=== PATIENT | female | born 1965 | race Caucasian/White ===

== ENCOUNTER 2019-08-05 14:17 | Emergency (ER) | payer BC, OTHER ==
--- NOTE | 2019-08-05 15:10 | EDM.PDOC ---
ED HPI GENERAL MEDICAL PROBLEM - General Chief Complaint: Chest Pain Stated Complaint: CHEST PAIN/BACK PAIN Time Seen by Provider: 08/05/19 15:08 - History of Present Illness INITIAL COMMENTS - FREE TEXT/NARRATIVE: 53-year-old female presents emergency room after a bout of chest pain.. the patient has not been feeling well the last several days she had some right hand numbness and tingling a couple of days ago and this migrated to her left hand yesterday but now has resolved. The patient has a history of type 2 diabetes however she's been off all her diabetes medications for about 9 months because the 2 health care providers she was seeing both left town. She is to take a metformin and glipizide. The patient has lost about 14 pounds but it is uncertain over the timeframe she lost this she's not been intentionally trying to lose weight. She does have a history of anxiety and does not know if this is been contributing to her recent symptoms. Chest pain she had about 11:30 12:00 today last 15-20 minutes with substernal did not seem to radiate anywhere. The pain is described as a sharp pressure. Treatments MAC DEVELOPER: Reports: Other (see below) Other Treatments MAC DEVELOPER: motrin Middle Chest Pain Score (Numeric/FACES): 5 - Related Data Allergies Allergy/AdvReac Type Severity Reaction Status Date / Time mushroom Allergy Hives Verified 09/24/18 08:51 Home Meds: Home Meds metFORMIN HCl [Metformin HCl] 500 mg PO Q12H #60 tablet 08/05/19 [Rx] Past Medical History HEENT History: Reports: Sinusitis Cardiovascular History: Reports: High Cholesterol, Hypertension Respiratory History: Reports: Asthma Gastrointestinal History: Reports: None Genitourinary History: Reports: Other (See Below) Other Genitourinary History: dysmenorrhea Musculoskeletal History: Reports: Other (See Below) Other Musculoskeletal History: ac joint arhtritis, right shoulder adhesive capsulitis, labral tear, right rotator cuff tear Neurological History: Reports: None Psychiatric History: Reports: Anxiety, Depression Endocrine/Metabolic History: Reports: Diabetes, Gestational, Diabetes, Type II Hematologic History: Reports: None Immunologic History: Reports: None Oncologic (Cancer) History: Reports: None Dermatologic History: Reports: None - Past Surgical History Head Surgeries/Procedures: Reports: None HEENT Surgical History: Reports: None Cardiovascular Surgical History: Reports: None Respiratory Surgical History: Reports: None Female Surgical History: Reports: D&C Endocrine Surgical History: Reports: None Neurological Surgical History: Reports: None Musculoskeletal Surgical History: Reports: None Oncologic Surgical History: Reports: None Dermatological Surgical History: Reports: None Social & Family History - Tobacco Use Smoking Status *Q: Never Smoker - Caffeine Use Caffeine Use: Reports: Soda, Tea - Recreational Drug Use Recreational Drug Use: No ED ROS GENERAL - Review of Systems Review Of Systems: See Below Constitutional: Reports: No Symptoms HEENT: Reports: No Symptoms Respiratory: Reports: No Symptoms Cardiovascular: Reports: Chest Pain. Denies: Blood Pressure Problem, Claudication GI/Abdominal: Reports: No Symptoms : Reports: No Symptoms Musculoskeletal: Reports: No Symptoms Skin: Reports: No Symptoms Neurological: Reports: Numbness, Tingling Psychiatric: Reports: Anxiety Hematologic/Lymphatic: Reports: No Symptoms Immunologic: Reports: No Symptoms ED EXAM, GENERAL - Physical Exam Exam: See Below Exam Limited By: No Limitations General Appearance: Alert, No Apparent Distress Head: Atraumatic, Normocephalic Neck: Normal Inspection, Supple, Non-Tender, Full Range of Motion. No: Lymphadenopathy (L), Lymphadenopathy (R) Respiratory/Chest: No Respiratory Distress, Lungs Clear, Normal Breath Sounds Cardiovascular: Normal Peripheral Pulses, Regular Rate, Rhythm, No Edema GI/Abdominal: Normal Bowel Sounds, Soft, Non-Tender, Other (She has a ventral hernia does not seem to bother her somewhat obese a few scratches on her abdomen she's thought were due to her cats none appears to be obviously infected ) Back Exam: Normal Inspection. No: CVA Tenderness (L), CVA Tenderness (R), Paraspinal Tenderness, Vertebral Tenderness Neurological: Alert, Oriented, Normal Cognition, No Motor/Sensory Deficits Psychiatric: Anxious (Mild) Course - Vital Signs Last Recorded V/S: Last Vital Signs Temp 35.9 C 08/05/19 14:33 Pulse 85 08/05/19 14:33 Resp 20 08/05/19 14:33 BP 139/51 L 08/05/19 14:33 Pulse Ox 96 08/05/19 14:33 - Orders/Labs/Meds Orders: Active Orders 24 hr Category Date Time Status EKG Documentation Completion [RC] ASDIRECTED Care 08/05/19 14:38 Active EKG 12 Lead [EK] Stat Ther 08/05/19 14:37 Ordered Labs: Laboratory Tests 08/05/19 08/05/19 08/05/19 Range/Units 15:35 15:35 15:55 WBC 6.74 (3.98-10.04) K/mm3 RBC 4.94 (3.98-5.22) M/mm3 Hgb 14.9 (11.2-15.7) gm/dl Hct 43.0 (34.1-44.9) % MCV 87.0 (79.4-94.8) fl MCH 30.2 (25.6-32.2) pg MCHC 34.7 (32.2-35.5) g/dl RDW Std Deviation 42.2 (36.4-46.3) fL Plt Count 252 (182-369) K/mm3 MPV 10.1 (9.4-12.3) fl Neutrophils % (Manual) 62 H (40-60) % Band Neutrophils % 0 (0-10) % Lymphocytes % (Manual) 29 (20-40) % Atypical Lymphs % 0 % Monocytes % (Manual) 8 (2-10) % Eosinophils % (Manual) 1 (0.7-5.8) % Basophils % (Manual) 0 L (0.1-1.2) Platelet Estimate Adequate RBC Morph Comment Normal Sodium 133 L (136-145) mEq/L Potassium 4.2 (3.5-5.1) mEq/L Chloride 98 (98-107) mEq/L Carbon Dioxide 26 (21-32) mEq/L Anion Gap 13.2 (5-15) BUN 15 (7-18) mg/dL Creatinine 0.8 (0.55-1.02) mg/dL Est Cr Clr Drug Dosing 74.02 mL/min Estimated GFR (MDRD) > 60 (>60) mL/min BUN/Creatinine Ratio 18.8 H (14-18) Glucose 264 H (74-106) mg/dL Calcium 8.8 (8.5-10.1) mg/dL Total Bilirubin 0.5 (0.2-1.0) mg/dL AST 19 (15-37) U/L ALT 36 (14-59) U/L Alkaline Phosphatase 83 (46-116) U/L Troponin I < 0.017 (0.00-0.056) ng/mL Total Protein 7.2 (6.4-8.2) g/dl Albumin 3.5 (3.4-5.0) g/dl Globulin 3.7 gm/dL Albumin/Globulin Ratio 1.0 (1-2) Urine Color Yellow (Yellow) Urine Appearance Clear (Clear) Urine pH 5.5 (5.0-8.0) Ur Specific Furman 1.025 (1.005-1.030) Urine Protein Negative (Negative) Urine Glucose (UA) 2+ H (Negative) Urine Ketones 1+ H (Negative) Urine Occult Blood Negative (Negative) Urine Nitrite Negative (Negative) Urine Bilirubin Negative (Negative) Urine Urobilinogen 0.2 (0.2-1.0) Ur Leukocyte Esterase Negative (Negative) Urine RBC 0-5 (0-5) /hpf Urine WBC 0-5 (0-5) /hpf Ur Squamous Epith Cells 0-5 (0-5) /hpf Urine Bacteria Not seen (FEW) /hpf Urine Mucus Not seen (FEW) /hpf Meds: Medications Discontinued Medications Generic Name Dose Route Start Last Admin Trade Name Neeru PRN Reason Stop Dose Admin Aspirin 324 mg 08/05/19 15:25 08/05/19 15:30 Aspirin PO 08/05/19 15:26 324 mg ONETIME ONE Administration Lorazepam 0.5 mg 08/05/19 15:26 08/05/19 15:30 Ativan PO 08/05/19 15:27 0.5 mg ONETIME ONE Administration - Re-Assessments/Exams Free Text/Narrative Re-Assessment/Exam: 08/05/19 17:37 Labs done patient's blood sugars are pretty elevated the 250s. She is spilling glucose in her urine ketones are slightly elevated on UA. Troponin is normal. At this point I recommended the patient get a stress test done she needs to reestablish with a local doctor she will call the Hospital clinic and try and get in to be seen on Friday with a can discuss getting this done. I will start her back on metformin 500 mg twice daily and have her take a baby aspirin daily. I believe a lot of her symptoms are stress related, anxiety. However she is at high risk for coronary artery disease with her diabetes poorly controlled. Did discuss anti-anxiety medication but the patient would like to hold off on this Departure - Departure Time of Disposition: 17:39 Disposition: Home, Self-Care Clinical Impression: Chest pain, Poorly controlled type 2 diabetes mellitus, Anxiety reaction Prescriptions: metFORMIN HCl [Metformin HCl] 500 mg PO Q12H #60 tablet Referrals: PCP,None [Primary Care Provider] - Forms: ED Department Discharge Additional Instructions: Return to the emergency room with any questions problems worsening symptoms. Start the metformin as directed. Take a baby aspirin enteric-coated 81 mg dose 1 daily. Follow-up in the Hospital clinic on Friday for recheck and to reestablish with a local provider. [phone] Discuss getting a heart stress test done. - My Orders Last 24 Hours: My Active Orders 08/05/19 14:37 EKG 12 Lead [EK] Stat 08/05/19 14:38 EKG Documentation Completion [RC] ASDIRECTED - Assessment/Plan Last 24 Hours: My Active Orders 08/05/19 14:37 EKG 12 Lead [EK] Stat 08/05/19 14:38 EKG Documentation Completion [RC] ASDIRECTED
[2019-08-05] MEDS ORDERED: Aspirin 81 MG Tab.Chew PO ONE (15:25)
[2019-08-05] MEDS ORDERED: LORazepam 0.5 MG Tab PO ONE (15:26)
--- NOTE | 2019-08-05 17:20 | CR ---
Chest: Portable view of the chest was obtained. Comparison: No prior chest x-ray. Heart size is slightly enlarged but accentuated from portable technique. Upper mediastinum is normal. Lungs are clear with no acute parenchymal change. Bony structures are grossly intact. Impression: 1. Nothing acute is appreciated on portable chest x-ray. Diagnostic code #2
== END 2019-08-05 18:00 | disposition home or self-care (01) ==
LOC: JD.ED 14:17
DX: F41.1 Generalized anxiety disorder (principal); E11.65 Type 2 diabetes mellitus with hyperglycemia; R07.9 Chest pain, unspecified; I10 Essential (primary) hypertension; J45.909 Unspecified asthma, uncomplicated; Z79.84 Long term (current) use of oral hypoglycemic drugs; Z91.018 Allergy to other foods
CPT/HCPCS: 36415; 71045; 80053; 81001; 84484; 85007; 85027; 93005; 99285; A9270; 93010

== ENCOUNTER 2019-11-09 08:25 | Emergency (ER) | payer BC ==
[2019-11-09] MEDS ORDERED: Aspirin 81 MG Tab.Chew PO ONE (08:29)
[2019-11-09] MEDS ORDERED: Sodium Chloride 0.9% 1,000 ML IV SCH (08:30)
[2019-11-09] MEDS ORDERED: Nitroglycerin/D5W 25 MG/250 ML BOTTLE IV SCH (08:30)
--- NOTE | 2019-11-09 08:37 | EDM.PDOC ---
ED HPI GENERAL MEDICAL PROBLEM - General Chief Complaint: Cardiovascular Problem Stated Complaint: BROUGHT OVER FROM STRESS TEST Time Seen by Provider: 11/09/19 08:32 Source of Information: Reports: Patient, Other (PA performing the ECG stress test.) History Limitations: Reports: No Limitations - History of Present Illness INITIAL COMMENTS - FREE TEXT/NARRATIVE: Patient has an abnormal ECG with T-wave inversion in II, III, and F aVF concerning for inferior wall ischemia. She underwent normal ECG stress testing this morning but only managed about 3 minutes on the Jake protocol first step. Because of central chest pain discomfort it was discontinued. She did receive a dose of Lexiscan and the pain got worse. Thus was brought to the ED for evaluation and monitoring . Still has central chest heaviness at the time of examination. She is a nonsmoker but she is a diabetic and overweight with hypertension. ECG shows sinus rhythm at 94/m. There is a nonspecific intraventricular conduction delay. Nonspecific diffuse repolarization abnormality. Consider left atrial hypertrophy pattern signs of definitive ischemia. Patient denies any sensation of needing to burp or belch. Patient reports she's been having similar type pains for many months and this is the reason that she's having ECG stress test performed. Onset: Today Onset Date: 11/09/19 Onset Time: 08:10 Duration: Minutes: Location: Reports: Chest (Antral chest pressure heaviness not radiating to her back neck or arms.) Quality: Reports: Ache, Pressure Severity: Moderate Improves with: Reports: None Worsens with: Reports: None Context: Reports: Other. Denies: Activity, Exercise, Lifting, Sick Contact, Trauma Associated Symptoms: Reports: Chest Pain (This occurred during ECG stress testing.). Denies: Cough, cough w sputum, Diaphoresis, Fever/Chills, Headaches , Loss of Appetite, Malaise, Nausea/Vomiting, Rash, Shortness of Breath, Syncope Treatments [employer]: Reports: Other (see below) Chest Pain Score (Numeric/FACES): 3 - Related Data Allergies Allergy/AdvReac Type Severity Reaction Status Date / Time mushroom Allergy Hives Verified 11/09/19 08:37 Home Meds: Home Meds metFORMIN HCl [Metformin HCl] 500 mg PO Q12H #60 tablet 08/05/19 [Rx] Past Medical History HEENT History: Reports: Sinusitis Cardiovascular History: Reports: High Cholesterol, Hypertension Respiratory History: Reports: Asthma Gastrointestinal History: Reports: None Genitourinary History: Reports: Other (See Below) Other Genitourinary History: dysmenorrhea Musculoskeletal History: Reports: Other (See Below) Other Musculoskeletal History: ac joint arhtritis, right shoulder adhesive capsulitis, labral tear, right rotator cuff tear Neurological History: Reports: None Psychiatric History: Reports: Anxiety, Depression Endocrine/Metabolic History: Reports: Diabetes, Gestational, Diabetes, Type II Hematologic History: Reports: None Immunologic History: Reports: None Oncologic (Cancer) History: Reports: None Dermatologic History: Reports: None - Past Surgical History Head Surgeries/Procedures: Reports: None HEENT Surgical History: Reports: None Cardiovascular Surgical History: Reports: None Respiratory Surgical History: Reports: None Female Surgical History: Reports: D&C Endocrine Surgical History: Reports: None Neurological Surgical History: Reports: None Musculoskeletal Surgical History: Reports: None Oncologic Surgical History: Reports: None Dermatological Surgical History: Reports: None Social & Family History - Caffeine Use Caffeine Use: Reports: Soda, Tea - Living Situation & Occupation Living situation: Reports: Occupation: Employed ED ROS GENERAL - Review of Systems Review Of Systems: See Below Constitutional: Reports: Other (Appears quite anxious. Temperature is 36.4. Pulse is 97 and sinus respiratory 16 BP 134/77 with O2 sats of 98% on room air.) . Denies: Fever, Chills, Malaise, Weakness, Fatigue HEENT: Reports: No Symptoms Respiratory: Reports: Shortness of Breath Cardiovascular: Reports: Chest Pain (Mild. Planes of central chest pressure heaviness to sternal. ), Dyspnea on Exertion. Denies: Blood Pressure Problem, Claudication, Edema, Lightheadedness, Orthopnea Endocrine: Reports: Fatigue GI/Abdominal: Reports: No Symptoms : Reports: Frequency Musculoskeletal: Reports: Joint Pain Skin: Reports: No Symptoms (Sips low back and neck at times) Neurological: Reports: No Symptoms Psychiatric: Reports: No Symptoms Hematologic/Lymphatic: Reports: No Symptoms Immunologic: Reports: No Symptoms ED EXAM, GENERAL - Physical Exam Exam: See Below Exam Limited By: No Limitations General Appearance: Alert, WD/WN, Moderate Distress, Other (Quite anxious. No signs are stable.) Eye Exam: Bilateral Eye: Normal Inspection, PERRL Throat/Mouth: Normal Inspection, Normal Lips, Normal Teeth, Normal Oropharynx Head: Atraumatic, Normocephalic, Other Neck: Normal Inspection, Supple, Non-Tender, Full Range of Motion. No: Lymphadenopathy (L), Lymphadenopathy (R) Respiratory/Chest: No Respiratory Distress, Lungs Clear, Normal Breath Sounds Cardiovascular: Normal Peripheral Pulses, Regular Rate, Rhythm, No Edema, No Gallop, No Murmur, No Rub Peripheral Pulses: 3+: Posterior Tibial (L), Posterior Tibial (R), Dorsalis Pedis (L), Dorsalis Pedis (R) GI/Abdominal: Normal Bowel Sounds, Soft, Non-Tender, No Organomegaly, No Abnormal Bruit, No Mass, Pelvis Stable Back Exam: Normal Inspection, Full Range of Motion. No: CVA Tenderness (L), CVA Tenderness (R) Extremities: Normal Inspection, Normal Range of Motion, Non-Tender Neurological: Alert, Oriented, CN II-XII Intact, Normal Cognition Psychiatric: Anxious Skin Exam: Warm, Dry, Intact, Normal Color, No Rash EKG INTERPRETATION EKG Date: 11/09/19 Time: 20:29 Rhythm: NSR Rate (Beats/Min): 94 Bohannon: Normal P-Wave: Enlarged (Consider left atrial hypertrophy.) QRS: Other (There is a nonspecific intraventricular conduction delay initially.) ST-T: Other (Nonspecific repolarization abnormalities in multiple leads.) QT: Normal EKG Interpretation Comments: Abnormal ECG Course - Vital Signs Last Recorded V/S: Last Vital Signs Temp 36.4 C 11/09/19 08:33 Pulse 97 11/09/19 08:33 Resp 16 11/09/19 08:33 BP 134/77 11/09/19 08:33 Pulse Ox 98 11/09/19 08:33 - Orders/Labs/Meds Orders: Active Orders 24 hr Category Date Time Status EKG Documentation Completion [RC] STAT Care 11/09/19 08:30 Active EKG Documentation Completion [RC] STAT Care 11/09/19 09:24 Active GLYCOSYLATED HEMOGLOBIN,HGBA1C [CHEM] Stat Lab 11/09/19 12:00 Received TSH [CHEM] Stat Lab 11/09/19 12:00 Received Nitroglycerin/D5W [Nitroglycerin 25 MG/D5W 250 ML] Med 11/09/19 08:30 Active 25 mg in 250 ml IV ASDIRECTED Sodium Chloride 0.9% [Normal Saline] 1,000 ml Med 11/09/19 08:30 Active IV ASDIRECTED Medication Orders Nitroglycerin/Dextrose (Nitroglycerin 25 Mg/D5w 250 Ml) 25 mg in 250 mls @ 6 mls/hr IV ASDIRECTED BOBO Last Admin: 11/09/19 08:52 Dose: 10 mcg/min, 6 mls/hr Sodium Chloride (Normal Saline) 1,000 mls @ 100 mls/hr IV ASDIRECTED BOBO Last Admin: 11/09/19 08:54 Dose: 100 mls/hr Labs: Laboratory Tests 11/09/19 11/09/19 11/09/19 Range/Units 09:00 09:00 09:00 WBC 5.48 (3.98-10.04) K/mm3 RBC 4.80 (3.98-5.22) M/mm3 Hgb 14.6 (11.2-15.7) gm/dl Hct 42.9 (34.1-44.9) % MCV 89.4 (79.4-94.8) fl MCH 30.4 (25.6-32.2) pg MCHC 34.0 (32.2-35.5) g/dl RDW Std Deviation 43.2 (36.4-46.3) fL Plt Count 229 (182-369) K/mm3 MPV 10.2 (9.4-12.3) fl Neut % (Auto) 63.6 (34.0-71.1) % Lymph % (Auto) 27.0 (19.3-51.7) % [place] % (Auto) 7.7 (4.7-12.5) % Eos % (Auto) 1.1 (0.7-5.8) Baso % (Auto) 0.4 (0.1-1.2) % Neut # (Auto) 3.49 (1.56-6.13) K/mm3 Lymph # (Auto) 1.48 (1.18-3.74) K/mm3 [place] # (Auto) 0.42 H (0.24-0.36) K/mm3 Eos # (Auto) 0.06 (0.04-0.36) K/mm3 Baso # (Auto) 0.02 (0.01-0.08) K/mm3 PT 10.3 (9.7-12.0) SECONDS INR 0.94 APTT 27 (22-31) SECONDS Sodium 138 (136-145) mEq/L Potassium 4.3 (3.5-5.1) mEq/L Chloride 103 (98-107) mEq/L Carbon Dioxide 23 (21-32) mEq/L Anion Gap 16.3 H (5-15) BUN 14 (7-18) mg/dL Creatinine 0.9 (0.55-1.02) mg/dL Est Cr Clr Drug Dosing Not Reportable Estimated GFR (MDRD) > 60 (>60) mL/min BUN/Creatinine Ratio 15.6 (14-18) Glucose 184 H (74-106) mg/dL Calcium 9.4 (8.5-10.1) mg/dL Magnesium 1.8 (1.8-2.4) mg/dl Total Bilirubin 0.5 (0.2-1.0) mg/dL AST 31 (15-37) U/L ALT 69 H (14-59) U/L Alkaline Phosphatase 70 (46-116) U/L CK-MB (CK-2) 2.0 (0-3.6) ng/ml Troponin I 0.162 H* (0.00-0.056) ng/mL C-Reactive Protein 0.9 (<1.0) mg/dL NT-Pro-B Natriuret Pep (0-125) pg/mL Total Protein 7.4 (6.4-8.2) g/dl Albumin 3.6 (3.4-5.0) g/dl Globulin 3.8 gm/dL Albumin/Globulin Ratio 1.0 (1-2) 11/09/19 11/09/19 Range/Units 09:00 12:00 WBC (3.98-10.04) K/mm3 RBC (3.98-5.22) M/mm3 Hgb (11.2-15.7) gm/dl Hct (34.1-44.9) % MCV (79.4-94.8) fl MCH (25.6-32.2) pg MCHC (32.2-35.5) g/dl RDW Std Deviation (36.4-46.3) fL Plt Count (182-369) K/mm3 MPV (9.4-12.3) fl Neut % (Auto) (34.0-71.1) % Lymph % (Auto) (19.3-51.7) % [place] % (Auto) (4.7-12.5) % Eos % (Auto) (0.7-5.8) Baso % (Auto) (0.1-1.2) % Neut # (Auto) (1.56-6.13) K/mm3 Lymph # (Auto) (1.18-3.74) K/mm3 [place] # (Auto) (0.24-0.36) K/mm3 Eos # (Auto) (0.04-0.36) K/mm3 Baso # (Auto) (0.01-0.08) K/mm3 PT (9.7-12.0) SECONDS INR APTT (22-31) SECONDS Sodium (136-145) mEq/L Potassium (3.5-5.1) mEq/L Chloride (98-107) mEq/L Carbon Dioxide (21-32) mEq/L Anion Gap (5-15) BUN (7-18) mg/dL Creatinine (0.55-1.02) mg/dL Est Cr Clr Drug Dosing Estimated GFR (MDRD) (>60) mL/min BUN/Creatinine Ratio (14-18) Glucose (74-106) mg/dL Calcium (8.5-10.1) mg/dL Magnesium (1.8-2.4) mg/dl Total Bilirubin (0.2-1.0) mg/dL AST (15-37) U/L ALT (14-59) U/L Alkaline Phosphatase (46-116) U/L CK-MB (CK-2) 1.8 (0-3.6) ng/ml Troponin I 0.184 H* (0.00-0.056) ng/mL C-Reactive Protein (<1.0) mg/dL NT-Pro-B Natriuret Pep 300 H (0-125) pg/mL Total Protein (6.4-8.2) g/dl Albumin (3.4-5.0) g/dl Globulin gm/dL Albumin/Globulin Ratio (1-2) Meds: Medications Generic Name Dose Route Start Last Admin Trade Name Freq PRN Reason Stop Dose Admin Nitroglycerin/Dextrose 25 mg in 250 mls @ 6 mls/hr 11/09/19 08:30 11/09/19 08 :52 Nitroglycerin 25 Mg/D5w 250 Ml IV 10 mcg/min ASDIRECTED BOBO 6 mls/hr Administration 10 MCG/MIN Sodium Chloride 1,000 mls @ 100 mls/hr 11/09/19 08:30 11/09/19 08:54 Normal Saline IV 100 mls/hr ASDIRECTED BOBO Administration Discontinued Medications Generic Name Dose Route Start Last Admin Trade Name Neeru PRN Reason Stop Dose Admin Aspirin 324 mg 11/09/19 08:29 11/09/19 08:54 Aspirin PO 11/09/19 08:30 324 mg ONETIME ONE Administration - Radiology Interpretation Free Text/Narrative:: 53-year-old female brought over from the ECG stress lab where she was undergoing an ECG stress testing. She last about 3 minutes on the Jake protocol. She then did receive contrast for Melinda scan which could be done about 10 AM. She developed retrosternal chest pressure discomfort during the short walking on the Jake protocol which is persisted. For brought to the ED for further evaluation and treatment. Vital signs are stable with BP 134/77 heart rate 93 and sinus. Significant intraventricular conduction delay. Diffuse repolarization abnormalities but no definitive ischemia. Plan nitroglycerin drip at 10 mcg/m. Given aspirin 324 mg chewed. Plan will still be to take over for her Lexiscan monitoring at 0900hrs. - Re-Assessments/Exams Free Text/Narrative Re-Assessment/Exam: 11/09/19 09:22 chest x-ray done portably is rotated to the right significantly. This makes the right hilar area little more prominent than normal. Visualized lungs are clear however. Cardiac silhouette is essentially normal. Patient remains over nuclear medicine scan study. She will have repeat ECG when she returns from the nuclear medicine scan. 11/09/19 09:43 and is now back from the first part of her Lexiscan. She is pain- free at this time. Second part of the Lexiscan is to be done around noon. She will recheck repeat cardiac markers troponin in 6 CK-MB fractions at 11:30 AM this morning. 11/09/19 10:24Total white count is normal at 5.48 with auto differential of 63% neutrophils. Hemoglobin is 14.6 with hematocrit of 42.9. Platelet count is 229, 000. PT is 10.3 with an INR of 0.94 PTT is 27. Sodium 138 with potassium of 4.3. Chloride 103 with a bicarbonate of 23. And a gap is mildly elevated at 16.3. BUN is 14 with a creatinine of 0.9. GFR remains greater than 60. Glucose is elevated at 184. Calcium is 9.4. Magnesium is 1.8. Liver function is normal other than ALT slightly elevated at 69. CK-MB fraction is 2.0 and troponin I is 0.162 i.e. elevated initially. C-reactive protein is 0.9 BNP is 300. Total protein 7.4 with an albumin fraction of 3.6 11/09/19 12:49 Second CK-MB fraction is back at 1.8 unchanged from the first . The troponin I has gone up slightly at 0.184 from 0.162. Lexiscan study is now back and reveals a large defect within the lateral wall which appears to be fixed majority of this lateral wall defect appears fixed with possible minimal reversibility. Inferior wall defect is also seen showing minimal improvement. Septal wall appears normal in perfusion. Anteroseptal wall also appears normal in perfusion. Ejection fraction is low at 39%. Wall thickening is diminished within the inferior lateral wall. Wall thickening is diminished within the inferior wall. Other portion of the left ventricular myocardium show normal wall thickening. 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 11/09/19 14:03 I did speak to the 1 call nurse to both the housing liaison and the hospitalist and ER physician at [facility] in [place].Dr Wells--in the ED will see her first and make sure that she is stable before being admitted. I went back to talk to the patient and her who is also here they identify many reasons for not traveling to [place] today due to work related problems child related problems etc. etc. 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 She declines ambulance and therefore will sign out AMA and do what she has to do in terms of managing things before she travels to [place] Census is so unexpected but she will travel to [place] emergency room as soon as possible. We'll fax all of the reports to the ED as well as her chest x-ray from today. is already on atorvastatin 80 mg once daily and she will take all of her medications as proposed. She can also eat as she will not be having any procedures until tomorrow. Diabetes in her right antecubital fossa and will be removed at the time of discharge. Departure - Departure Time of Disposition: 14:05 Disposition: DC/Tfer to [facility] 02 Reason for Transfer *Q: Primary PCI Indicated Condition: Fair Clinical Impression: Acute coronary syndrome with high troponin, Stable angina pectoris Instructions: Acute Coronary Syndrome, Angina Pectoris, [id number] Referrals: Christie Dumont MD [Primary Care Provider] - Forms: ED Department Discharge, ED Return to Work/School Form Additional Instructions: Evaluation in the emergency room today in regards to failing your stress test with development of central chest pain shortly after beginning the chest pain went away with intravenous nitroglycerin drip and aspirin 324 mg was given by mouth. You've had no further chest pain since being in the ED. We were able to get her Lexiscan completed and it reveals a significant fixed deficit or damage to the lateral wall of your heart and inferior wall of your heart. The ejection fraction or the measurement of how well the pump is working is about half normal at 39%. It is therefore likely that you have three-vessel coronary disease with significant occlusion of these vessels that is going to need to be repaired either by stenting or by coronary artery bypass bypass surgery. Arrangements have been made for you to be admitted to [facility] in [place] as soon as possibl Please travel to that institution as soon as you get her affairs in order to be admitted. Sepsis Event Note - Focused Exam Vital Signs: Vital Signs Temp Pulse Resp BP Pulse Ox 11/09/19 08:33 36.4 C 97 16 134/77 98 Date Exam was Performed: 11/09/19 Time Exam was Performed: 14:20 - My Orders Last 24 Hours: My Active Orders 11/09/19 08:30 EKG Documentation Completion [RC] STAT Nitroglycerin/D5W [Nitroglycerin 25 MG/D5W 250 ML] 25 mg in 250 ml IV ASDIRECTED Sodium Chloride 0.9% [Normal Saline] 1,000 ml IV ASDIRECTED 11/09/19 09:24 EKG Documentation Completion [RC] STAT 11/09/19 12:00 GLYCOSYLATED HEMOGLOBIN,HGBA1C [CHEM] Stat TSH [CHEM] Stat - Assessment/Plan Last 24 Hours: My Active Orders 11/09/19 08:30 EKG Documentation Completion [RC] STAT Nitroglycerin/D5W [Nitroglycerin 25 MG/D5W 250 ML] 25 mg in 250 ml IV ASDIRECTED Sodium Chloride 0.9% [Normal Saline] 1,000 ml IV ASDIRECTED 11/09/19 09:24 EKG Documentation Completion [RC] STAT 11/09/19 12:00 GLYCOSYLATED HEMOGLOBIN,HGBA1C [CHEM] Stat TSH [CHEM] Stat
--- NOTE | 2019-11-09 09:10 | CR ---
Chest: Portable view of the chest was obtained. Comparison: Prior chest x-ray of 08/05/19. Heart size and mediastinum are normal. Lungs are clear. Bony structures are grossly intact. Impression: 1. Nothing acute is appreciated on portable chest x-ray. Diagnostic code #1 This report was dictated in [place] Standard Time
[2019-11-09 14:34] LABS: HEMOGLOBIN A1C 8.7 % (4.50-6.20)
== END 2019-11-09 14:21 ==
LOC: JD.ED 08:25
DX: I24.9 Acute ischemic heart disease, unspecified (principal); R79.89 Other specified abnormal findings of blood chemistry; I10 Essential (primary) hypertension; E11.9 Type 2 diabetes mellitus without complications; Z91.018 Allergy to other foods; Z79.84 Long term (current) use of oral hypoglycemic drugs
CPT/HCPCS: 36415; 71045; 80053; 82553; 83036; 83735; 83880; 84443; 84484; 85025; 85610; 85730; 86140; 93005; 96365; 96366; 99285; A9270; J3490; J7030

== ENCOUNTER 2020-06-23 08:39 | Emergency (ER) | payer BC ==
--- NOTE | 2020-06-23 09:05 | EDM.PDOC ---
ED HPI GENERAL MEDICAL PROBLEM - General Chief Complaint: Chest Pain Stated Complaint: chest pains Time Seen by Provider: 06/23/20 09:03 Source of Information: Reports: Patient History Limitations: Reports: No Limitations - History of Present Illness INITIAL COMMENTS - FREE TEXT/NARRATIVE: 54-year-old female presents to the ED for evaluation of pinching left precordial chest pain in her upper anterior left chest. She states is been present since about 1020 hrs. yesterday morning. It has continued and is quite bothersome to the patient. She is apprehensive as she has had a myocardial infarction in October of this year requiring 2 stent placement in 2 separate vessels. She has not stopped her Plavix. She has taken 2 baby aspirins this morning with some relief. Denies any true odynophagia burping or belching to relieve the discomfort. She does had more heartburn the last day or 2. His cough or sputum production. No shortness of breath on exertion. No fever or chills. Onset: Sudden Onset Date: 06/22/20 Onset Time: :20 Duration: Hour(s):, Constant Location: Reports: Chest (Left upper anterior chest. She is able to localize the area very well.) Quality: Reports: Other (Scribes it as a pinching sensation which to me means fairly sharp and stabbing.) Severity: Moderate Improves with: Reports: Medication (Aspirin seems to make it go away.) Worsens with: Reports: None Context: Reports: Other (Srinivasa is occurrence). Denies: Activity, Exercise, Lifting, Sick Contact, Trauma Associated Symptoms: Reports: No Other Symptoms, Chest Pain. Denies: Confusion, Cough, cough w sputum, Diaphoresis, Fever/Chills, Headaches, Loss of Appetite, Malaise, Nausea/Vomiting, Rash, Seizure, Shortness of Breath, Syncope Treatments ADULT SPECIALIST: Reports: Aspirin (Aspirin yesterday and this morning seems to have helped relieve the discomfort.) Middle Chest Pain Score (Numeric/FACES): 4 - Related Data Allergies Allergy/AdvReac Type Severity Reaction Status Date / Time mushroom Allergy Hives Verified 06/23/20 08:54 Home Meds: Home Meds metFORMIN HCl [Metformin HCl] 500 mg PO Q12H #60 tablet 08/05/19 [Rx] predniSONE [Prednisone] 20 mg PO BID #12 tablet 06/23/20 [Rx] Past Medical History HEENT History: Reports: Sinusitis Cardiovascular History: Reports: High Cholesterol, Hypertension, [place], Stents (Had 2 stents placed in October of this year 1 and 2 separate vessels. She is maintained on a baby aspirin daily a daily and Plavix 75 mg daily.) Respiratory History: Reports: Asthma Gastrointestinal History: Reports: None Genitourinary History: Reports: Other (See Below) Other Genitourinary History: dysmenorrhea Musculoskeletal History: Reports: Other (See Below) Other Musculoskeletal History: ac joint arhtritis, right shoulder adhesive capsulitis, labral tear, right rotator cuff tear Neurological History: Reports: None Psychiatric History: Reports: Anxiety, Depression Endocrine/Metabolic History: Reports: Diabetes, Gestational, Diabetes, Type II (Type 2 diabetes controlled with diet and metformin daily.) Hematologic History: Reports: None Immunologic History: Reports: None Oncologic (Cancer) History: Reports: None Dermatologic History: Reports: None - Past Surgical History Head Surgeries/Procedures: Reports: None HEENT Surgical History: Reports: None Cardiovascular Surgical History: Reports: None Respiratory Surgical History: Reports: None Female Surgical History: Reports: D&C Endocrine Surgical History: Reports: None Neurological Surgical History: Reports: None Musculoskeletal Surgical History: Reports: None Oncologic Surgical History: Reports: None Dermatological Surgical History: Reports: None Social & Family History - Family History Family Medical History: Noncontributory GI: Reports: None - Tobacco Use Smoking Status *Q: Never Smoker Second Hand Smoke Exposure: No - Caffeine Use Caffeine Use: Reports: Soda - Recreational Drug Use Recreational Drug Use: No - Living Situation & Occupation Living situation: Reports: Occupation: Employed [facility] - Review of Systems Review Of Systems: See Below Constitutional: Denies: Fever, Chills, Malaise, Weakness, Fatigue, Decreased Ap petite, Weight Loss HEENT: Reports: Glasses Respiratory: Denies: Shortness of Breath, Wheezing, Pleuritic Chest Pain, Cough, Sputum Cardiovascular: Reports: Chest Pain (History of present illness.). Denies: Blood Pressure Problem, Claudication, Dyspnea on Exertion, Edema, Lightheadedness, Orthopnea, Palpitations Endocrine: Reports: No Symptoms GI/Abdominal: Reports: Other (Has been experiencing some reflux disease the last few days. This is not common for her.) : Reports: No Symptoms Musculoskeletal: Reports: No Symptoms Skin: Reports: No Symptoms Neurological: Reports: No Symptoms Psychiatric: Reports: No Symptoms ED EXAM, GENERAL - Physical Exam Exam: See Below Exam Limited By: No Limitations General Appearance: Alert, WD/WN, Anxious, Mild Distress, Other (Temperature is 35.8 which is unlikely to be correct. Pulse oximetry is 96% room air. Respiratory is 20 pulse is 85 and sinus BP mildly elevated 1 4470.) Eye Exam: Bilateral Eye: Normal Inspection Neck: Normal Inspection, Supple, Non-Tender, Full Range of Motion. No: Carotid Bruit, Lymphadenopathy (L), Lymphadenopathy (R) Respiratory/Chest: No Respiratory Distress, Lungs Clear, Normal Breath Sounds, No Accessory Muscle Use, Chest Non-Tender, Other (Create any musculoskeletal pain on firm compression of the ribs in the midclavicular line bilaterally.) Cardiovascular: Normal Peripheral Pulses, Regular Rate, Rhythm, No Edema, No Gallop, No Murmur, No Rub Peripheral Pulses: 3+: Carotid (L), Carotid (R) GI/Abdominal: Normal Bowel Sounds, Soft, Non-Tender, No Organomegaly, No Abnormal Bruit, No Mass, Pelvis Stable Back Exam: Normal Inspection, Full Range of Motion. No: CVA Tenderness (L), CVA Tenderness (R) Extremities: Normal Inspection, Normal Range of Motion, Non-Tender, No Pedal Edema Neurological: Alert, Oriented, CN II-XII Intact, Normal Cognition Psychiatric: Normal Affect, Normal Mood, Anxious (Mildly anxious.) Skin Exam: Warm, Dry, Intact, Normal Color, No Rash EKG INTERPRETATION EKG Date: 06/23/20 Time: 08:46 Rhythm: NSR Rate (Beats/Min): 75 [place]hart: Normal P-Wave: Enlarged (Consider left atrial hypertrophy) QRS: Other (Tall R waves in lead I suggests likely left ventricular ventricular hypertrophy) ST-T: Normal QT: Normal EKG Interpretation Comments: Order line ECG Course - Vital Signs Last Recorded V/S: Last Vital Signs Temp 35.8 C L 06/23/20 08:48 Pulse 77 06/23/20 11:42 Resp 16 06/23/20 11:42 BP 124/45 L 06/23/20 11:42 Pulse Ox 99 06/23/20 11:42 - Orders/Labs/Meds Orders: Active Orders 24 hr Category Date Time Status Chest 1V Frontal [CR] Stat Exams 06/23/20 09:19 Taken Sodium Chloride 0.9% [Normal Saline] 1,000 ml Med 06/23/20 09:30 Active IV ASDIRECTED Medication Orders Sodium Chloride (Normal Saline) 1,000 mls @ 100 mls/hr IV ASDIRECTED BOBO Last Admin: 06/23/20 09:33 Dose: 100 mls/hr Documented by: [id number] Labs: Laboratory Tests 06/23/20 06/23/20 06/23/20 Range/Units 09:00 09:00 09:00 WBC 5.91 (3.98-10.04) K/mm3 RBC 4.82 (3.98-5.22) M/mm3 Hgb 14.4 (11.2-15.7) gm/dl Hct 42.6 (34.1-44.9) % MCV 88.4 (79.4-94.8) fl MCH 29.9 (25.6-32.2) pg MCHC 33.8 (32.2-35.5) g/dl RDW Std Deviation 43.4 (36.4-46.3) fL Plt Count 250 (182-369) K/mm3 MPV 9.9 (9.4-12.3) fl Neut % (Auto) 52.7 (34.0-71.1) % Lymph % (Auto) 36.7 (19.3-51.7) % Garrett % (Auto) 8.6 (4.7-12.5) % Eos % (Auto) 1.7 (0.7-5.8) Baso % (Auto) 0.3 (0.1-1.2) % Neut # (Auto) 3.11 (1.56-6.13) K/mm3 Lymph # (Auto) 2.17 (1.18-3.74) K/mm3 Garrett # (Auto) 0.51 H (0.24-0.36) K/mm3 Eos # (Auto) 0.10 (0.04-0.36) K/mm3 Baso # (Auto) 0.02 (0.01-0.08) K/mm3 PT 10.1 (9.7-11.7) SECONDS INR 0.94 APTT 27 (22-31) SECONDS Sodium 138 (136-145) mEq/L Potassium 4.4 (3.5-5.1) mEq/L Chloride 101 (98-107) mEq/L Carbon Dioxide 28 (21-32) mEq/L Anion Gap 13.4 (5-15) BUN 15 (7-18) mg/dL Creatinine 0.9 (0.55-1.02) mg/dL Est Cr Clr Drug Dosing 65.05 mL/min Estimated GFR (MDRD) > 60 (>60) mL/min BUN/Creatinine Ratio 16.7 (14-18) Glucose 158 H (74-106) mg/dL Calcium 9.1 (8.5-10.1) mg/dL Magnesium 1.8 (1.8-2.4) mg/dl Total Bilirubin 0.4 (0.2-1.0) mg/dL AST 27 (15-37) U/L ALT 58 (14-59) U/L Alkaline Phosphatase 73 (46-116) U/L CK-MB (CK-2) 2.8 (0-3.6) ng/ml Troponin I < 0.017 (0.00-0.056) ng/mL C-Reactive Protein 1.0 (<1.0) mg/dL NT-Pro-B Natriuret Pep (0-125) pg/mL Total Protein 7.4 (6.4-8.2) g/dl Albumin 3.7 (3.4-5.0) g/dl Globulin 3.7 gm/dL Albumin/Globulin Ratio 1.0 (1-2) 06/23/20 Range/Units 09:00 WBC (3.98-10.04) K/mm3 RBC (3.98-5.22) M/mm3 Hgb (11.2-15.7) gm/dl Hct (34.1-44.9) % MCV (79.4-94.8) fl MCH (25.6-32.2) pg MCHC (32.2-35.5) g/dl RDW Std Deviation (36.4-46.3) fL Plt Count (182-369) K/mm3 MPV (9.4-12.3) fl Neut % (Auto) (34.0-71.1) % Lymph % (Auto) (19.3-51.7) % Garrett % (Auto) (4.7-12.5) % Eos % (Auto) (0.7-5.8) Baso % (Auto) (0.1-1.2) % Neut # (Auto) (1.56-6.13) K/mm3 Lymph # (Auto) (1.18-3.74) K/mm3 Garrett # (Auto) (0.24-0.36) K/mm3 Eos # (Auto) (0.04-0.36) K/mm3 Baso # (Auto) (0.01-0.08) K/mm3 PT (9.7-11.7) SECONDS INR APTT (22-31) SECONDS Sodium (136-145) mEq/L Potassium (3.5-5.1) mEq/L Chloride (98-107) mEq/L Carbon Dioxide (21-32) mEq/L Anion Gap (5-15) BUN (7-18) mg/dL Creatinine (0.55-1.02) mg/dL Est Cr Clr Drug Dosing mL/min Estimated GFR (MDRD) (>60) mL/min BUN/Creatinine Ratio (14-18) Glucose (74-106) mg/dL Calcium (8.5-10.1) mg/dL Magnesium (1.8-2.4) mg/dl Total Bilirubin (0.2-1.0) mg/dL AST (15-37) U/L ALT (14-59) U/L Alkaline Phosphatase (46-116) U/L CK-MB (CK-2) (0-3.6) ng/ml Troponin I (0.00-0.056) ng/mL C-Reactive Protein (<1.0) mg/dL NT-Pro-B Natriuret Pep 20 (0-125) pg/mL Total Protein (6.4-8.2) g/dl Albumin (3.4-5.0) g/dl Globulin gm/dL Albumin/Globulin Ratio (1-2) Meds: Medications Generic Name Dose Route Start Last Admin Trade Name Freq PRN Reason Stop Dose Admin Sodium Chloride 1,000 mls @ 100 mls/hr 06/23/20 09:30 06/23/20 09:33 Normal Saline IV 100 mls/hr ASDIRECTED BOBO Administration - Radiology Interpretation Free Text/Narrative:: 54-year-old female presents to the ED with atypical left precordial chest pain upper anterior chest. Been present since yesterday morning about 1020 hrs. and she states rather persistent. She describes it as a pinching sensation and is able to localize it fairly well to the midclavicular line in between the third and fourth intercostal spaces. No associated shortness of breath or pain with coughing. He states increased pain when she tilts her head all the way back suggesting musculoskeletal origin. She is concerned of course because she had severe coronary artery disease identified in October of this year requiring 2 stent placement in 2 separate vessels. She reports she has not missed any of her Plavix or aspirin treatments. She did take 2 baby aspirin's this morning. ECG done by triage nurse shows no signs of any ischemia or recent myocardial infarction. Unable to localize any obvious chest wall pain on examination. Plan normal saline at 100 mils per hour. Routine labs including cardiac markers to be done. - Re-Assessments/Exams Free Text/Narrative Re-Assessment/Exam: 06/23/20 11:14 White count is normal at 5.91. Auto differential shows 52.7% neutrophils. Hemoglobin is 14.4 with hematocrit of 42.6. Platelet counts 250,000. PT is 10.1 with an INR of 0.94. PTT is 27. Sodium 138 with a potassium of 4.4. Chloride 101 with a bicarb of 28. Anion gap is 13.4. BUN is 15 with a creatinine of 0.9. GFR is greater than 60. Glucose is slightly elevated 158. Calcium is 9.1 with a magnesium of 1.8. Liver function is normal. CK-MB fraction is 2.8 and troponin I is less than 0.017. C-reactive protein is 1.0 BNP is 20. Audible chest x-ray reveals mild cardiomegaly with slightly tortuous thoracic aorta. Visualized lung gonzales do not reveal any pneumonia. No pneumothorax. 06/23/20 11:50 herber the findings with the patient. Unclear etiology of chest wall pain. She is able to localize it and make it better when she puts direct pressure on the area. This suggest strongly that it is musculoskeletal in origin. Possible viral etiologies such as echovirus or coxsackievirus. 06/23/20 11:51Certainly no evidence of heart related illness. Since she is on Plavix she cannot take nonsteroidal anti-inflammatories. We will place her on prednisone 20 mg twice daily for the next 6 days to reduce pain and inflammation. She can still use Tylenol as needed. Will be given to excuse her from the workplace for today and tomorrow. Follow-up with personal care physician if not markedly improved in 72 hours time Departure - Departure Time of Disposition: 11:51 Disposition: Home, Self-Care 01 Condition: Fair Clinical Impression: Non-cardiac chest pain, Acute chest wall pain Prescriptions: predniSONE [Prednisone] 20 mg PO BID #12 tablet Instructions: Nonspecific Chest Pain, Adult Referrals: Christie Dumont MD [Primary Care Provider] - Forms: ED Department Discharge, ED Return to Work/School Form Additional Instructions: Evaluation in the emergency room this morning in regards to persistent pinching type pain in the left precordium of your chest particularly upper anterior chest. It is worsened by certain movements of the head and neck particularly full extension of your neck and perhaps full lateral extension of your left upper extremity. Chest x-ray was within normal limits ECG also shows no signs of any acute changes to the heart rhythm. Lab test proved to be completely normal in particular cardiac markers for heart attack are 0. No signs of congestive heart failure. All of your electrolytes and kidney and liver function were normal. This appears to be secondary to musculoskeletal injury or inflammation of the muscles between the ribs likely from a viral cause. Suggest resting this area as much as possible for the next 2 to 3 days. Activity as tolerated. Due to being on Plavix she cannot take nonsteroidal anti- inflammatory agents. Suggest the use of prednisone 20 mg twice daily with breakfast and supper for the next 6 days with the first tablet provided through the ED this morning. It is okay to take Tylenol 650 mg every 4 hours if needed for pain relief. Expect gradual improvement over the next 2 to 3 days time. If symptoms persist past that time then follow-up with your personal care physician is indicated or sooner if you develop cough sputum production fever or chills. Sepsis Event Note (ED) - Evaluation Sepsis Screening Result: No Definite Risk - Focused Exam Vital Signs: Vital Signs Temp Pulse Resp BP Pulse Ox 06/23/20 11:42 77 16 124/45 L 99 06/23/20 08:48 35.8 C L 85 20 144/70 H 96 - My Orders Last 24 Hours: My Active Orders 06/23/20 09:19 Chest 1V Frontal [CR] Stat 06/23/20 09:30 Sodium Chloride 0.9% [Normal Saline] 1,000 ml IV ASDIRECTED - Assessment/Plan Last 24 Hours: My Active Orders 06/23/20 09:19 Chest 1V Frontal [CR] Stat 06/23/20 09:30 Sodium Chloride 0.9% [Normal Saline] 1,000 ml IV ASDIRECTED
[2020-06-23] MEDS ORDERED: Sodium Chloride 0.9% 1,000 ML IV SCH (09:30)
[2020-06-23] MEDS ORDERED: predniSONE 20 MG Tab PO ONE (11:53)
--- NOTE | 2020-06-23 15:03 | CR ---
Chest: Portable view of the chest was obtained. Comparison: Prior chest x-ray of 11/09/19. Heart size and mediastinum are within normal limits for portable technique. Lungs are clear with no acute parenchymal change. Bony structures are grossly intact. Impression: 1. Nothing acute is seen on portable chest x-ray. Diagnostic code #1 Study was dictated in MDT
== END 2020-06-23 12:11 | disposition home or self-care (01) ==
LOC: JD.ED 08:39
DX: R07.89 Other chest pain (principal); I10 Essential (primary) hypertension; E11.9 Type 2 diabetes mellitus without complications; I25.2 Old myocardial infarction; J45.909 Unspecified asthma, uncomplicated; Z91.018 Allergy to other foods; Z79.84 Long term (current) use of oral hypoglycemic drugs; Z79.899 Other long term (current) drug therapy; Z79.82 Long term (current) use of aspirin; Z79.02 Long term (current) use of antithrombotics/antiplatelets
CPT/HCPCS: 36415; 71045; 80053; 82553; 83735; 83880; 84484; 85025; 85610; 85730; 86140; 96360; 96361; 99285; J7030; J7512; 93010; 99283

== ENCOUNTER 2021-09-03 18:50 | Emergency (ER) | payer OTHER, BC ==
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
[2021-09-03] MEDS ORDERED: Ibuprofen 400 MG Tab PO ONE (21:19)
--- NOTE | 2021-09-04 05:39 | CT ---
Head CT Technique: Multiple axial sections through the brain were obtained. Intravenous contrast was not utilized. Reconstructed coronal and sagittal images were obtained. Comparison: No prior intracranial imaging is available. Findings: Ventricles along with basal cisterns and sulci over the convexities are within normal limits for the patient's age. No abnormal parenchymal densities are seen. No evidence of intracranial hemorrhage is seen. No midline shift or mass-effect is seen. Bone window settings were reviewed. Visualized mastoid sinuses and paranasal sinuses show nothing acute. No acute calvarial abnormality is appreciated. Atherosclerotic calcification is seen within the carotid siphon. Impression: 1. Minimal senescent change as noted above. 2. Nothing acute is appreciated on noncontrast head CT study. Diagnostic code #2 I agree with preliminary report from [facility], finalized on 09/03/21, 9:32 PM [employer], code 1
== END 2021-09-03 21:34 | disposition home or self-care (01) ==
LOC: JD.ED 18:50
DX: S09.90XA Unspecified injury of head, initial encounter (principal); E78.00 Pure hypercholesterolemia, unspecified; I10 Essential (primary) hypertension; I25.2 Old myocardial infarction; Z95.5 Presence of coronary angioplasty implant and graft; Z86.16 Personal history of COVID-19; Z91.018 Allergy to other foods; W20.8XXA Other cause of strike by thrown, projected or falling object, initial encounter
CPT/HCPCS: 70450; 99283; A9270